=== PATIENT | female | born 1975 | race Caucasian/White ===

== ENCOUNTER 2019-06-30 09:17 | Emergency (ER) | payer OTHER ==
[~2019-06-30] VITALS: Ht 162.6 cm; Wt 106.6 kg
== END 2019-06-30 10:20 | disposition home or self-care (01) ==
LOC: ER 09:17
DX: G54.0 Brachial plexus disorders (principal); G83.9 Paralytic syndrome, unspecified; Z88.8 Allergy status to other drugs, medicaments and biological substances; Z91.048 Other nonmedicinal substance allergy status
CPT/HCPCS: 99282